=== PATIENT | female | born 1940 | race Hispanic/Latino ===

== ENCOUNTER → 2021-05-05 | Outpatient (CLI) | payer OTHER ==
[~2021-05-05] MED LIST: IOHEXOL-350 75 ML VIAL IV ONE
== END | disposition home or self-care (01) ==
LOC: RAH 09:00
PROVIDERS: ATTEND Family Medicine
DX: I65.22 Occlusion and stenosis of left carotid artery (principal); I77.9 Disorder of arteries and arterioles, unspecified
CPT/HCPCS: 70498; Q9967

== ENCOUNTER → 2021-10-27 | Outpatient (CLI) | payer OTHER | END | disposition home or self-care (01) | LOC: RAH 15:23 | PROVIDERS: ATTEND Family Medicine | DX: Z12.31 Encounter for screening mammogram for malignant neoplasm of breast (principal) | CPT/HCPCS: 77067 ==

== ENCOUNTER 2022-11-18 10:28 | Emergency (ER) | payer OTHER ==
[~2022-11-18] VITALS: Ht 157.5 cm; Wt 59.4 kg
[2022-11-18 12:21] LABS: HEMATOCRIT 44.3 % (36-48); MEAN CORPUSCULAR HEMOGLOBIN 30.7 pg (27.0-33.0); MEAN CORPUSCULAR HGB CONC 33.4 g/dL (32.0-36.0); MEAN CORPUSCULAR VOLUME 91.9 fL (79-99); RED BLOOD CELL COUNT(AUTO) 4.82 MIL/uL (4.00-5.50); RED CELL DISTRIBUTION WIDTH 12.7 % (11.0-15.5); WHITE BLOOD COUNT (AUTO) 6.7 K/uL (4.8-10.8)
[2022-11-18 12:46] LABS: ALBUMIN 3.9 g/dL (3.5-5.0); BILIRUBIN,TOTAL 0.4 mg/dL (0.2-1.0); CREATININE 1.2 mg/dL (0.5-1.5); POTASSIUM 3.2 mmol/L (3.5-5.1); TOTAL PROTEIN, SERUM 7.8 g/dL (6.0-8.3)
[2022-11-18] MEDS ORDERED: 0.9%NACL 1000ML 1,000 ML IV ONE (13:00)
[2022-11-18] MEDS ORDERED: ONDANSETRON 4MG INJ IVP ONE (13:00)
[2022-11-18] MEDS ORDERED: POTASSIUM BICARB/CIT AC 25 MEQ TABLET.EFF PO ONE (13:00)
[2022-11-18 14:54] LABS: APPEARANCE,URINE CLEAR (CLEAR); BILIRUBIN,URINE NEGATIVE (NEGATIVE); COLOR,URINE LIGHT-YELLOW (YELLOW); GLUCOSE, URINE (UA) NEGATIVE (NEGATIVE); KETONES,URINE NEGATIVE (NEGATIVE); LEUKOCYTE ESTERASE ,URINE NEGATIVE Leu/uL (NEGATIVE); NITRATE,URINE NEGATIVE (NEGATIVE); OCCULT BLOOD,URINE NEGATIVE (NEGATIVE); PH,URINE 5.5 (5.0-8.0); PROTEIN,URINE NEGATIVE (NEGATIVE); UROBILINOGEN,URINE 0.2 mg/dL (0.2-1.0)
[2022-11-18 14:56] LABS: ADD UA MICROSCOPIC NO
[2022-11-18] MEDS ORDERED: ONDA4TAB10 PO (18:22)
[2022-11-18 18:37] VITALS: BP 142/75; PULSE 81; RESP 18; O2SAT 97
== END 2022-11-18 18:39 | disposition home or self-care (01) ==
LOC: EDH 10:28
DX: K52.9 Noninfective gastroenteritis and colitis, unspecified (principal); E87.6 Hypokalemia; E86.0 Dehydration; R19.5 Other fecal abnormalities; I10 Essential (primary) hypertension
CPT/HCPCS: 99283; 96374; 96361; 82270; 80053; 83690; 85027; 87046; 87324; 81003; 36415; 83630; J7030; J2405

== ENCOUNTER → 2024-01-31 | Outpatient (CLI) | payer OTHER ==
[~2024-01-31] MED LIST changes: -IOHEXOL-350 75 ML VIAL IV ONE; +ONDA-243 PO
--- NOTE | 2024-01-31 15:54 | HMCSR ---
APPROVED REPORT EXAM: Two-dimensional and M-mode echocardiogram with Doppler and color Doppler. INDICATION ICD: Essential (primary) Hypertension I10.0 2D Dimensions RVDd4.0 cmLVEF(%)67.4 (>50%)LVED Vol(simp.)45.4 mL IVSd0.8 (0.7-1.1cm)FS(%)37 %LVES Vol(simp.)14.0 mL LVDd3.8 (3.8-5.6cm)LA (2D)4.2 (1.6-4.0cm)LVEF(%, simp.)69 % PWd0.9 (0.7-1.1cm)Ao Root(2D)2.5 (2.0-3.7cm)LA ESV INDEX (4CH)26.50 mL/m2 IVSs1.1 cmLVOT diam1.6 (1.8-2.4cm)LA ESV INDEX (2CH)24.10 mL/m2 LVDs2.4 (2.5-4.0cm)IVC diam1.6 cmLA ESV INDEX (BP)23.60 mL/m2 PWs1.1 cm M-Mode Dimensions EPSS0.3 cm LA (MM)4.3 (1.6-4.0cm) Ao Root(MM)2.5 (2.0-3.7cm) Aortic Valve AoV VTI0.4 mAo Mean GR6.0 mmHgLVOT VTI0.24 m ARNOLDO (VMAX)1.3 cm2AVA (VTI) 1.3 cm2 Mitral Valve MV E Vmax78.6 cm/sDECEL Hwwd722 ms MV A Vmax87.3 cm/sP 1/2 T57 ms E/A ratio0.9MVA (PHT)3.9 cm2 MR Max PG74 mmHg TDI E/E' Qrzruz93.1E/E' Vmowkwb48.1 Medial E' Peak V6.50 cm/sLateral E' Peak V6.00 cm/s Tricuspid Valve TR Vmax2.6 m/sRAP (EST) 8 ouMkHJHK64.1 mmHg TR Peak GR26.1 mmHg Left Ventricle The left ventricle is normal size. There is normal left ventricular wall thickness. Sigmoid septum i s present. LVEF is 65-70%. Stage I diastolic dysfunction. Right Ventricle The right ventricle is normal size. The right ventricular systolic function is normal. Atria The left atrium size is normal. The right atrium size is normal. Aortic Valve The aortic valve is normal in structure. No aortic regurgitation is present. There is no aortic valvu lar stenosis. Mitral Valve The mitral valve is normal in structure. Mitral regurgitation is mild. There is no mitral valve steno sis. Tricuspid Valve The tricuspid valve is normal in structure. There is mild tricuspid valve regurgitation noted, RVSP 3 4mmHg. Pulmonic Valve The pulmonary valve is normal in structure. There is no pulmonic valvular regurgitation. Great Vessels The aortic root is normal in size. The IVC is normal in size and collapses >50% with inspiration. Pericardium There is no pericardial effusion. Conclusion The left ventricle is normal size. LVEF is 65-70%. Mitral regurgitation is mild. Mild tricuspid valve regurgitation
== END | disposition home or self-care (01) ==
LOC: RAH 13:42
PROVIDERS: ATTEND Internal Medicine Cardiovascular Disease
DX: I08.1 Rheumatic disorders of both mitral and tricuspid valves (principal); I11.9 Hypertensive heart disease without heart failure
CPT/HCPCS: 93306

== ENCOUNTER → 2025-02-05 | Outpatient (CLI) | payer OTHER | END | disposition home or self-care (01) | LOC: RAH 13:00 | PROVIDERS: ATTEND Internal Medicine Cardiovascular Disease | DX: I10 Essential (primary) hypertension (principal) | CPT/HCPCS: 93306 ==